=== PATIENT | female | born 1995 | race Caucasian/White ===

== ENCOUNTER 2016-09-09 15:49 | Outpatient (CLI) | payer OTHER ==
[2016-09-09] MEDS ORDERED: ONDANSETRON 4 MG/2ML 2 ML VIAL IV ONE (16:15)
[2016-09-09] MEDS ORDERED: LACTATED RINGERS 1,000 ML IV SCH (16:15)
[2016-09-09] MEDS ORDERED: ACETAMINOPHEN 500 MG TABLET PO ONE (16:15)
[2016-09-09 16:17] VITALS: BMI 23.4
[2016-09-09] MEDS ORDERED: IV START KIT ONE (16:19)
[2016-09-09 16:51] LABS: URINE BILIRUBIN NEGATIVE (NEGATIVE); URINE BLOOD NEGATIVE (NEGATIVE); URINE GLUCOSE (UA) NEGATIVE (NEGATIVE); URINE LEUKOCYTE ESTERASE NEGATIVE (NEGATIVE); URINE NITRITE NEGATIVE (NEGATIVE); URINE PROTEIN NEGATIVE (NEGATIVE); URINE UROBILINOGEN NORMAL (0-1 mg/dl)
[2016-09-09 16:54] LABS: URINE APPEARANCE CLEAR; URINE COLOR YELLOW
== END 2016-09-09 17:35 | disposition home or self-care (01) ==
LOC: FBCOUT 15:49 → FBC 15:51 → FBCOUT 17:35
PROVIDERS: ATTEND Registered Nurse
DX: O21.9 Vomiting of pregnancy, unspecified (principal); Z3A.00 Weeks of gestation of pregnancy not specified
CPT/HCPCS: 96374; 96361; 81003; 59050; A9270; J2405; J7120; G0463